=== PATIENT | male | born 1975 | race Caucasian/White ===

== ENCOUNTER 2019-06-17 00:27 | Emergency (ER) | payer MEDICAID ==
[~2019-06-17] VITALS: Ht 167.6 cm; Wt 77.3 kg
[2019-06-17 00:44] VITALS: Ht 167.6 cm; Wt 77.3 kg
[2019-06-17 01:47] VITALS: BP 136/89
== END 2019-06-17 01:47 | disposition home or self-care (01) ==
LOC: D.ER 00:27
DX: M62.838 Other muscle spasm (principal); G89.29 Other chronic pain

== ENCOUNTER 2020-01-20 22:25 | Emergency (ER) | payer MEDICAID ==
[~2020-01-20] VITALS: Ht 170.2 cm; Wt 77.3 kg
[2020-01-20 22:38] VITALS: BP 137/77; Ht 170.2 cm; Wt 77.3 kg
== END 2020-01-21 00:34 | disposition home or self-care (01) ==
LOC: D.ER 22:25
DX: M54.12 Radiculopathy, cervical region (principal); M47.9 Spondylosis, unspecified; K21.9 Gastro-esophageal reflux disease without esophagitis; M25.511 Pain in right shoulder

== ENCOUNTER 2020-02-13 20:26 | Emergency (ER) | payer MEDICAID ==
[~2020-02-13] VITALS: Ht 170.2 cm; Wt 77.3 kg
[2020-02-13 20:35] VITALS: Ht 170.2 cm; Wt 77.3 kg
[2020-02-13] MEDS ORDERED: AMOXICILLIN875 MG PO (21:36)
[2020-02-13] MEDS ORDERED: ROBITUSSIN DM 110 ML PO (21:36)
[2020-02-13] MEDS ORDERED: STERAPRED DS 1010 MG PO (21:36)
[2020-02-14 03:38] VITALS: BP 121/76
== END 2020-02-13 22:40 | disposition home or self-care (01) ==
LOC: D.ER 20:26
DX: J06.9 Acute upper respiratory infection, unspecified (principal); R05 Cough; K21.9 Gastro-esophageal reflux disease without esophagitis; Z72.0 Tobacco use; R06.02 Shortness of breath; R07.89 Other chest pain